=== PATIENT | female | born 1985 | race Caucasian/White ===

== ENCOUNTER → 2019-06-11 14:24 | Outpatient (CLI) | payer OTHER, SELFPAY ==
[2019-06-11 17:58] LABS: Absolute Lymphocyte Count 2.18 X10^3/uL (0.83-4.51); Absolute Neutrophil Count 5.6 X10^3/uL (2.0-7.7); Eosinophils% 12.3 % (0-5); Hematocrit 43.9 % (37-47); Hemoglobin 14.3 g/dL (12.0-15.0); Lymphocyte # 2.18 X10^3/ul (4.0); Lymphocyte % 22.3 % (19-41); Mean Corp Hgb Conc 32.6 g/dL (32-36); Mean Platelet Vol. 12.6 fl (6.2-12.0); Monocyte% 7.2 % (0-10); NRBC Flagged by Analyzer 0 % (0-5); Neutrophil # 5.56 X10^3/uL (2.7-7.7); Neutrophil % 56.8 % (47-70); Platelet Count 233 K/mm3 (150-450); RBC Distribution Width CV 12.4 % (11.6-14.6); RBC Distribution Width SD 41.9 fl (35.1-43.9); Red Blood Count 4.77 M/mm3 (4.2-5.4); White Blood Count 9.8 K/mm3 (4.4-11.0)
[2019-06-11 18:14] LABS: Erythrocyte Sedimentation Rate 11 mm/hr (0-20)
[2019-06-11 18:17] LABS: Vitamin B12 841 pg/mL (211-911); Vitamin D,25 Hydroxy 43.9 ng/mL
[2019-06-11 18:22] LABS: Thyroid Stim Hormone (TSH) 1.94 uIU/mL (0.358-3.74)
[2019-06-16 08:07] LABS: Immunoglobulin E 319 IU/mL (6-495)
[2019-06-16 15:06] LABS: Anti-Thyroglobulin AB < 1.0 IU/mL (0.0-0.9); Immunoglobulin A 180 mg/dL (87-352); Thyroglobulin, Serum Qt. 8.8 ng/mL (1.5-38.5); t-Transglutaminase IgA <2 U/mL (0-3)
== END ==
DX: L20.81 Atopic neurodermatitis (principal); R21 Rash and other nonspecific skin eruption; L29.9 Pruritus, unspecified; R53.81 Other malaise
CPT/HCPCS: 36415; 82306; 82607; 82784; 82785; 83516; 84432; 84443; 85025; 85652; 86003; 86160; 86800